=== PATIENT | female | born 1945 ===

== ENCOUNTER 2018-09-23 14:39 | Inpatient (IN) | payer OTHER ==
[~2018-09-23] VITALS: Ht 160 cm; Wt 59.0 kg
[~2018-09-23 14:39] MED LIST: ACIDO FOLICO; AMARIL; ASPIR 8181 MG; CALTRATE 600 +1 EACH; CLONAZEPAM1 MG PO; DOCUSATE SODIU100 MG PO; LANTUS SOLOSTAR3 ML; LOSARTAN POTASS25 MG; PERCOCET 5/3251 TAB PO; SINGULAIR4 MG; SPIRIVA RESPIMAT4 G1; SYNTHROID50 MCG; [UNRECOGNIZED DRUG - CODE]; [UNRECOGNIZED DRUG - OTHER]
[2018-10-05] MEDS ORDERED: TRADJENTA PO (08:36)
[2018-10-05] MEDS ORDERED: GLIMEPIRIDE2 MG PO (08:37)
[2018-10-05] MEDS ORDERED: XYZAL5 MG PO (08:37)
[2018-10-05] MEDS ORDERED: MAXFE CAPLET1 EACH PO (08:37)
[2018-10-05] MEDS ORDERED: SPIRIVA (08:38)
[2018-10-15] MEDS ORDERED: ADVAIR HFA 115/12 GM IH (09:11)
[2018-10-15] MEDS ORDERED: MONTELUKAST SOD10 MG PO (09:16)
[2018-10-15] MEDS ORDERED: TRADJENTA5 MG PO (09:17)
[2018-10-15] MEDS ORDERED: FOLIC ACID1 MG PO (09:19)
[2018-10-15] MEDS ORDERED: HYDROCHLOROTH12.5 MG PO (09:25)
[2018-10-15] MEDS ORDERED: GABAPENTIN600 MG PO (09:25)
[2018-10-15] MEDS ORDERED: DICLOFENAC SOD100 GM TOP (09:33)
[2018-10-15] MEDS ORDERED: NIZATIDINE150 MG PO (09:34)
[2018-10-15] MEDS ORDERED: INSULIN SYRING1 EA10 (09:36)
== END 2018-10-17 11:22 | disposition home or self-care (01) | DRG 737 ==
LOC: SURH 10-15 01:15 → OB/GYN 10-15 05:55 → O/R 10-15 05:55 → SURH 10-15 07:45 → OB/GYN 10-15 20:29
PROVIDERS: ADMIT Obstetrics & Gynecology Gynecologic Oncology
PROC: 0UT90ZZ Resection of Uterus, Open Approach (ICD-10-PCS; 2018-10-15)
PROC: 0UT70ZZ Resection of Bilateral Fallopian Tubes, Open Approach (ICD-10-PCS; 2018-10-15)
PROC: 0UT20ZZ Resection of Bilateral Ovaries, Open Approach (ICD-10-PCS; 2018-10-15)
PROC: 0DTJ0ZZ Resection of Appendix, Open Approach (ICD-10-PCS; principal; 2018-10-15 01:15)
DX: C56.2 Malignant neoplasm of left ovary (principal); K35.890 Other acute appendicitis without perforation or gangrene; C78.5 Secondary malignant neoplasm of large intestine and rectum; R19.04 Left lower quadrant abdominal swelling, mass and lump; C56.1 Malignant neoplasm of right ovary; R19.03 Right lower quadrant abdominal swelling, mass and lump; E03.8 Other specified hypothyroidism; I10 Essential (primary) hypertension; E11.9 Type 2 diabetes mellitus without complications; Z79.4 Long term (current) use of insulin; C57.01 Malignant neoplasm of right fallopian tube